=== PATIENT | female | born 1975 | race American Indian/Alaskan Native ===

== ENCOUNTER 2021-09-19 10:40 | Day surgery (SDC) | payer OTHER ==
[2021-09-19] MEDS ORDERED: LACTATED RINGERS 1,000 ML ONE (11:58)
[2021-09-19] MEDS ORDERED: ONDANSETRON 4 MG/2 ML INJ IV PRN (12:01)
[2021-09-19] MEDS ORDERED: HYDROmorphone 0.5 MG/0.5 ML INJ IV PRN ×2 (12:01)
--- NOTE | 2021-09-19 12:10 | Anesthesia Day of Surgery ---
Anesthesia Day of Surgery - Day of Surgery Patient Examined: Yes Patient H&P Reviewed: Yes Patient is NPO: Yes
--- NOTE | 2021-09-19 12:12 | Anesthesia Consultation ---
Anesthesia Consult and Med Hx Date of service: 09/19/21 - Airway Anesthetic Teeth Evaluation: Good ROM Head & Neck: Adequate Mental/Hyoid Distance: Adequate Mallampati Class: Class II Intubation Access Assessment: Good - Pre-Operative Health Status ASA Pre-Surgery Classification: ASA3 Proposed Anesthetic Plan: General - Pulmonary Hx Smoking: Yes (CIGARETTES 1/2 PPD) Hx Respiratory Symptoms: Yes (Uses inhaler; unable to climb 2FS) SOB: Yes Hx Sleep Apnea: Yes (DOES NOT USE C-PAP) - Cardiovascular System Hx Hypertension: Yes Hx Heart Attack/AMI: No (Pt reports negative ETT in Apr 2021) - Central Nervous System Hx Back Pain: Yes (NECK) Hx Psychiatric Problems: No - Gastrointestinal Hx Gastroesophageal Reflux Disease: No - Hematic Hx Anemia: No Hx Sickle Cell Disease: No - Other Systems Hx Alcohol Use: No Hx Substance Use: No Hx Cancer: No Hx Obesity: Yes (BMI 49)
[2021-09-19] MEDS ORDERED: LACTATED RINGERS 1,000 ML IV SCH (12:15)
--- NOTE | 2021-09-19 12:23 | History and Physical Report ---
History of Present Illness Date of examination: 09/13/21 Date of admission: 09/19/2021 Chief complaint: cyst History of present illness: Patient presents for preoipative visit for vulvar cyst biopsy. Previously seen by PCP and had I&D for possible Bartholin's gland cyst on her left side. Presented for evaluation complaining of pain and continued drainage. Completed antiobitoics prescribed by PCP. Following presented to office and noted have firm area with no drainage on incsion. Word catheter placed and later removed. Biopsy recommended for further evaluation. Notes area is healing, but still appreciating some tenderness to the area. Has completed doxycyine as prescribed. Notes she can still feel the area of firmness. Has been cleared from her PCP for surgery. Will proceed with biopsy. Past History Past Medical History: hypertension, hyperlipidemia Past Surgical History: , hysterectomy Social history: smoking Family history: cancer Medications and Allergies Allergies Allergy/AdvReac Type Severity Reaction Status Date / Time Sulfa (Sulfonamide AdvReac Intermediate Rash Verified 09/09/21 17:08 Antibiotics) Home Medications Medication Instructions Recorded Confirmed Last Taken Type Fenofibrate [Tricor] 145 mg PO QDAY 09/09/21 09/09/21 Unknown History Gabapentin [Neurontin] 600 mg PO Q8H 09/09/21 09/09/21 Unknown History lisinopriL [Lisinopril] 10 mg PO DAILY 09/09/21 09/09/21 Unknown History Active Meds: Active Medications Hydromorphone HCl (Hydromorphone 0.5 Mg/0.5 Ml Inj) 0.25 mg IV Q10MIN PRN PRN Reason: Pain, Moderate (4-6) Stop: 09/20/21 12:00 Hydromorphone HCl (Hydromorphone 0.5 Mg/0.5 Ml Inj) 0.5 mg IV Q10MIN PRN PRN Reason: Pain , Severe (7-10) Stop: 09/20/21 12:00 Lactated Ringer's (Lactated Ringers) 1,000 mls @ 125 mls/hr IV DIRECT ROMEO Midazolam HCl (Midazolam 2 Mg/2 Ml Inj) 2 mg IV PREOP NR Stop: 09/19/21 23:59 Ondansetron HCl (Ondansetron 4 Mg/2 Ml Inj) 4 mg IV ONCE PRN PRN Reason: Nausea And Vomiting Review of Systems All systems: negative Genitourinary Female: other (vulvar discomfort) Exam - Constitutional General appearance: Present: no acute distress, well-nourished - Respiratory Respiratory effort: normal - Abdominal General gastrointestinal: Present: soft, non-tender, non-distended, normal bowel sounds Female genitourinary: Present: deferred Assessment and Plan I&D site well healing, but firmness still noted Will proceed for vulvar cyst excision and biopsy Risk of procedure reviewed including pain, bleeding, infection, damage to surrounding tissues and structures, need for further procedures. Procedure and blood consents signed [facility] obtained. - Patient Problems (1) Vulvar cyst Current Visit: Yes Status: Acute
[2021-09-19] MEDS: MIDAZOLAM 2 MG/2 ML INJ IV NR ×2 (12:25→14:45)
[2021-09-19] MEDS ORDERED: MIDAZOLAM 2 MG/2 ML INJ IV SCH (13:00)
[2021-09-19] MEDS ORDERED: LIDOCAINE MPF (2%) 20 MG/1 ML VIAL 5 ML ONE (14:27)
[2021-09-19] MEDS ORDERED: propofoL 200 MG/20 ML VIAL IV ONE (14:28)
[2021-09-19] MEDS ORDERED: dexAMETHasone 20 MG/5 ML VIAL ONE (14:28)
[2021-09-19] MEDS ORDERED: ONDANSETRON 4 MG/2 ML INJ ONE (14:28)
[2021-09-19] MEDS ORDERED: HYDROmorphone 1 MG/1 ML INJ ONE (14:28)
[2021-09-19] MEDS ORDERED: MIDAZOLAM 2 MG/2 ML INJ ONE (14:39)
[2021-09-19] MEDS ORDERED: fentaNYL 100 MCG/2 ML INJ ONE ×2 (14:55→15:54)
--- NOTE | 2021-09-19 15:52 | Operative Report ---
Operative Report Operative Report: Date of procedure: September 19, 2021 Preoperative Diagnosis: vulvar cyst Postoperative Diagnosis: same Procedure: Exam under anesthesia vulvar cyst excision Surgeon: Elly Bradford MD Anesthesia: General Urine Output: 25 cc Estimated Blood Loss: minimal Findings: Well-healed incision site from previous incision and drainage of left Bartholin gland cyst. Multiple small nodular lesions along the left labia majora and surrounding the previous incision site. Specimens: Left vulvar cyst biopsy Technique: Patient taken to the operating room and placed under general anesthesia. Placed in dorsal lithotomy position and. Prepped and draped in usual sterile manner. Vulva examined and above findings noted. Previous incision open with with scalpel. Small cystic lesion noted at the inferior edge of the incision. Grasped with forceps and removed with Metzenbaum scissors. During removal cyst ruptured and contents noted to be sebaceous in nature. An additional cyst was noted and removed in a similar fashion. Bovie cautery was used to control bleeding. Incision closed with 3-0 Vicryl in a running fashion. An area of oozing noted in the central aspect of the incision and an additional interrupted suture placed. Hemostasis achieved. All instruments removed. Patient tolerated procedure well.
--- NOTE | 2021-09-19 15:56 | Short Stay Summary ---
Short Stay Documentation Date of service: 09/19/21 Narrative H&P: Patient with vulvar cysts. Previous I&D in office with notable firm areas. Decision made to take to OR for vulvar cyst biopsy. - History Principal diagnosis: vulvar cyst Past Medical History: hypertension, hyperlipidemia Past Surgical History: , hysterectomy Social history: smoking - Allergies and Medications Current Medications: Allergies Sulfa (Sulfonamide Antibiotics) Adverse Reaction (Intermediate, Verified 09/09/21 17:08) Rash MOUTH BREAKS OUT Home Medications Medication Instructions Recorded Confirmed Last Taken Type Fenofibrate [Tricor] 145 mg PO QDAY 09/09/21 09/19/21 09/18/21 09:00 History Gabapentin [Neurontin] 600 mg PO DAILY 09/09/21 09/19/21 09/18/21 09:00 History lisinopriL [Lisinopril] 10 mg PO DAILY 09/09/21 09/19/21 09/18/21 09:00 History Ibuprofen [Motrin 800 MG tab] 800 mg PO Q8HR #30 tablet 09/19/21 Unknown Rx traMADoL [Ultram 50 MG tab] 50 mg PO Q6HR PRN #10 tablet 09/19/21 Unknown Rx Active Medications Hydromorphone HCl (Hydromorphone 0.5 Mg/0.5 Ml Inj) 0.25 mg IV Q10MIN PRN PRN Reason: Pain, Moderate (4-6) Stop: 09/20/21 12:00 Hydromorphone HCl (Hydromorphone 0.5 Mg/0.5 Ml Inj) 0.5 mg IV Q10MIN PRN PRN Reason: Pain , Severe (7-10) Stop: 09/20/21 12:00 Lactated Ringer's (Lactated Ringers) 1,000 mls @ 125 mls/hr IV DIRECT ROMEO Last Admin: 09/19/21 12:00 Dose: 125 mls/hr Cefazolin Sodium 3 gm/ Sodium (Chloride) 100 mls @ 100 mls/30 min IV PREOP NR; Protocol Stop: 09/19/21 16:00 Midazolam HCl (Midazolam 2 Mg/2 Ml Inj) 2 mg IV PREOP NR Stop: 09/19/21 23:59 Last Admin: 09/19/21 14:45 Dose: 2 mg Midazolam HCl (Midazolam 2 Mg/2 Ml Inj) 2 mg IV ONCE@1300 ROMEO Stop: 09/19/21 17:00 Ondansetron HCl (Ondansetron 4 Mg/2 Ml Inj) 4 mg IV ONCE PRN PRN Reason: Nausea And Vomiting - Physical exam General appearance: no acute distress Gastrointestinal: normal Extremities: no ischemia, No edema - Disposition Condition at discharge: Good Disposition: 01 HOME / SELF CARE / HOMELESS - Discharge Diagnoses (1) Vulvar cyst Status: Acute Short Stay Discharge Plan Activity: other (Pelvic rest: no sex, nothing in the vagina) Weight Bearing Status: Full Weight Bearing Diet: low cholesterol, low salt Wound: keep clean and dry Additional Instructions: Sitz baths three times daily Follow up with: YVONNE OSORIO MD [Staff Physician] - 7 Days Prescriptions: Ibuprofen [Motrin 800 MG tab] 800 mg PO Q8HR #30 tablet traMADoL [Ultram 50 MG tab] 50 mg PO Q6HR PRN #10 tablet PRN Reason: Pain
[2021-09-19] MEDS ORDERED: SODIUM CHLORIDE 0.9% IRR 1,500 ML BOTTLE IR ONE (16:14)
[2021-09-19] MEDS ORDERED: traMADol 50 MG TAB PO PRN (16:32)
[2021-09-19 17:13] VITALS: BP 124/64
== END 2021-09-19 17:20 | disposition home or self-care (01) ==
LOC: OR 10:40
PROVIDERS: ATTEND Student in an Organized Health Care Education/Training Program
DX: N90.7 Vulvar cyst (principal); L72.0 Epidermal cyst; E78.00 Pure hypercholesterolemia, unspecified; I10 Essential (primary) hypertension; G47.30 Sleep apnea, unspecified; E66.9 Obesity, unspecified; M19.90 Unspecified osteoarthritis, unspecified site; F17.210 Nicotine dependence, cigarettes, uncomplicated; Z88.2 Allergy status to sulfonamides; Z79.899 Other long term (current) drug therapy; Z68.42 Body mass index [BMI] 45.0-49.9, adult; Z90.710 Acquired absence of both cervix and uterus; Z98.890 Other specified postprocedural states
CPT/HCPCS: 11421; 88304; J0690; J1100; J1170; J2250; J2405; J2704; J3010; J7120; 88305